=== PATIENT | female | born 1965 | race Two or more races ===

== ENCOUNTER 2017-09-17 19:33 | Emergency (ER) | payer SELFPAY ==
[~2017-09-17] VITALS: Ht 167.6 cm; Wt 68.0 kg
[~2017-09-17 19:33] MED LIST: HYDR-552 PO
--- NOTE | 2017-09-17 19:45 | NUR ---
"LOWER ABD PAIN SINCE MAY ON AND OFF WITH NAUSEA". NAD NOTED, VSS, RESP EVEN AND UNLABORED, PT PUT ON MONITOR, WAITING FOR MD SYEDA.
[2017-09-17] MEDS ORDERED: ONDANSETRON HCL/PF 4 MG/2 ML VIAL ONE (20:17)
[2017-09-17] MEDS ORDERED: MORPHINE SULFATE INJ 4 MG/ML DISP.SYRIN ONE (20:17)
[2017-09-17] MEDS ORDERED: IV NS 0.9% 1,000 ML BAG IV ONE (20:30)
[2017-09-17] MEDS ORDERED: ONDANSETRON HCL/PF 4 MG/2 ML VIAL IVP ONE (20:30)
[2017-09-17] MEDS ORDERED: MORPHINE SULFATE INJ 2 MG/ML DISP.SYRIN IV ONE (20:30)
[2017-09-17 20:35] LABS: APPEARANCE,URINE Clear (CLEAR); BILIRUBIN,URINE Negative (NEGATIVE); BLOOD, URINE Small Ery/uL (NEGATIVE); COLOR,URINE Yellow (YELLOW); KETONES,URINE Negative (NEGATIVE); LEUKOCYTE ESTERASE ,URINE Negative (NEGATIVE); NITRITE, URINE Negative (NEGATIVE); PROTEIN,URINE Negative (NEGATIVE); UGLUCOSE Negative (NEGATIVE); UROBILINOGEN,URINE 0.2 EU/dL (0.2)
[2017-09-17 20:35] LABS: BASOPHILS % (AUTO) 0.5 % (0.0-2.0); EOSINOPHILS % (AUTO) 2.2 % (0.0-6.0); HEMATOCRIT 39 % (33-45); LYMPHOCYTES # (AUTO) 2.4 /CMM (0.8-4.8); MEAN CORPUSCULAR HGB CONC 34 g/dl (31.0-36.0); MEAN CORPUSCULAR VOLUME 81 fL (82-100); MONOCYTES # (AUTO) 0.6 /CMM (0.1-1.30); MONOCYTES % (AUTO) 6.6 % (2.0-12.0); NEUTROPHILS # (AUTO) 5.6 /CMM (1.8-8.9); NEUTROPHILS % (AUTO) 63.7 % (43.0-81.0); PLATELET COUNT (AUTO) 412 /CMM (150-450); RDW COEFFICIENT OF VARIATION 14.2 (11.5-15.0); RED BLOOD CELL COUNT(AUTO) 4.78 MIL/uL (4.0-5.2); WHITE BLOOD COUNT (AUTO) 8.8 K/uL (4.3-11.0)
--- NOTE | 2017-09-17 20:39 | NUR ---
PT TO [facility]SCAN
[2017-09-17 20:43] LABS: BACTERIA,URINE Rare /HPF (None Seen); SQUAMOUS EPITHELIAL CELL,UR Few /HPF (None Seen); WBC,URINE NONE SEEN /HPF (0-3)
[2017-09-17 20:54] LABS: ALBUMIN 3.4 g/dL (3.4-5.0); BILIRUBIN,DIRECT 0.2 mg/dL (0.0-0.2); BILIRUBIN,TOTAL 0.8 mg/dL (0.2-1.0); CALCIUM, SERUM 8.8 mg/dL (8.5-10.1); CREATININE 0.5 mg/dL (0.6-1.3); TOTAL PROTEIN, SERUM 9.5 g/dL (6.4-8.2)
[2017-09-17] MEDS ORDERED: POTASSIUM CHLORIDE 20 MEQ TAB.PRT.SR PO ONE ×2 (21:30→21:31)
[2017-09-17] MEDS ORDERED: KETOROLAC TROMETHAMINE INJ 30 MG/ML VIAL ONE (22:26)
[2017-09-17] MEDS ORDERED: KETOROLAC TROMETHAMINE INJ 30 MG/ML VIAL IV ONE (22:30)
--- NOTE | 2017-09-17 22:42 | NUR ---
Patient discharged to home in stable condition. Written and verbal after care instructions given. Patient verbalizes understanding of instruction.IV removed. Catheter intact and site benign. Pressure and 4x4 applied to site. No bleeding noted. Prescription given.
[2017-09-17 22:43] VITALS: BP 125/75
== END 2017-09-17 22:44 | disposition home or self-care (01) ==
LOC: ER 19:35
DX: K57.32 Diverticulitis of large intestine without perforation or abscess without bleeding (principal); E87.6 Hypokalemia; R31.9 Hematuria, unspecified; G89.29 Other chronic pain; F10.10 Alcohol abuse, uncomplicated; R11.0 Nausea; K59.00 Constipation, unspecified; Z88.2 Allergy status to sulfonamides
CPT/HCPCS: 36415; 80048-TC; 80076-TC; 81000-TC; 85025-TC; A4606; J1885; J2270; J2405; J7030; Z7610

== ENCOUNTER 2020-12-31 18:55 | Emergency (ER) | payer OTHER ==
[~2020-12-31] VITALS: Ht 167.6 cm; Wt 77.1 kg
[~2020-12-31 18:55] MED LIST changes: +HYDR-4384 PO; -HYDR-552 PO
--- NOTE | 2020-12-31 19:47 | NUR ---
WILBERT FROM HOME FOR C/O H/A AND DIZZINESS S/P RECEIVING STEROID SHOT FOR L SHOULDER "TORN LIGAMENT" AT DR'S OFFICE THIS MORNING. PT WAS PLACED IN BED 11 ER AND ON MONITOR, VSS. NO FACIAL DROOP OR SLURRED SPEECH NOTED. WILL CONT TO MONITOR WHILE WAITING FOR MD'S EVAL.
[2020-12-31] MEDS ORDERED: IBUP-1955 PO (22:05)
[2020-12-31] MEDS ORDERED: ONDANSETRON 4 MG TAB.RAPDIS ONE (22:22)
[2020-12-31] MEDS ORDERED: HYDROCODONE/APAP 5/325MG TABLET ONE (22:22)
[2020-12-31] MEDS: HYDROCODONE/APAP 5/325MG TABLET PO ONE (22:30)
[2020-12-31] MEDS: ONDANSETRON 4 MG TAB.RAPDIS SL ONE (22:30)
[2020-12-31 22:39] VITALS: BP 137/82
== END 2020-12-31 22:39 | disposition home or self-care (01) ==
LOC: ER 18:57
DX: R51.9 Headache, unspecified (principal); R11.0 Nausea; G89.29 Other chronic pain; Z88.2 Allergy status to sulfonamides
CPT/HCPCS: 70450; 99284; Q0162

== ENCOUNTER 2022-02-25 14:11 | Emergency (ER) | payer OTHER ==
[~2022-02-25] VITALS: Ht 167.6 cm; Wt 79.4 kg
[~2022-02-25 14:11] MED LIST changes: +IBUP-1955 PO
--- NOTE | 2022-02-25 14:26 | NUR ---
BIBS W/ C/O LEFT EYE REDNESS AND PAIN SINCE YESTERDAY, DENIES ANY TRAUMA. TO ER BED 3.
--- NOTE | 2022-02-25 14:40 | NUR ---
DR MCMAHON AT BEDSIDE FOR EVAL
[2022-02-25] MEDS ORDERED: CIPR5DRO EACHEYE (14:50)
--- NOTE | 2022-02-25 15:45 | NUR ---
Patient discharged to home in stable condition. Written and verbal after care instructions given. Patient verbalizes understanding of instruction.
[2022-02-25 15:46] VITALS: BP 120/65
== END 2022-02-25 15:47 | disposition home or self-care (01) ==
LOC: ER 14:12
DX: H10.9 Unspecified conjunctivitis (principal); Z87.19 Personal history of other diseases of the digestive system; Z88.2 Allergy status to sulfonamides; Z91.018 Allergy to other foods; Z79.899 Other long term (current) drug therapy